=== PATIENT | male | born 2000 | race Caucasian/White ===

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

== ENCOUNTER 2022-06-16 18:20 | Emergency (ER) | payer OTHER, SELFPAY ==
[2022-06-16 18:34] VITALS: BP 121/62; PULSE 68; RESP 16; TEMP 36.8; O2SAT 100
--- NOTE | 2022-06-16 18:52 | ED.NAVMDI ---
HPI - Nausea/Vomiting/Diarrhea General Chief complaint: Dizziness Stated complaint: Vomitting, passed out Time Seen by Provider: 06/16/22 19:10 Source: patient Mode of arrival: ambulatory Limitations: no limitations History of Present Illness HPI Narrative: Ben is a 21-year-old male patient presenting to the clinic today with complaints of nausea, vomiting, and passing out. He reports that he was eating something approximately 1 hour prior to arrival and felt nauseous and spit it out and then he got some stomach pain and vomited and felt as though he passed out near the stool. He denies hitting his head. He reports that he feels like his heart is pounding out of his chest. The reports that they did a COVID test prior to arrival and it was negative. He felt sweaty and chilled. He denies feeling nauseated at this time Related Data Home Medications Medication Instructions Recorded Confirmed No Home Medications 06/16/22 06/16/22 Allergies Allergy/AdvReac Type Severity Reaction Status Date / Time bee pollen Allergy Mild Swelling Verified 06/16/22 19:16 Penicillins Allergy Unknown Rash Verified 06/16/22 19:16 Review of Systems Review of Systems: Pertinent positives per HPI. Patient denies any fever, chills, rash, headache, visual changes, dizziness, cough, runny nose, sore throat, shortness of breath, chest pain, palpitations, nausea, vomiting, diarrhea, constipation, abdominal pain, or any urinary issues. PMFSH Past Medical History Medical History Anxiety Surgical History Surgical History No pertinent past surgical history Social History Social History Smoking status: Never smoker Alcohol intake: never Substance use: never Gender identity (if verbalized by the patient): Male Comments At the time of my signature, I reviewed and agree with the nursing past medical, surgical, social, and family history. There is no relevant family history pertinent to the patient complaint. Exam Narrative: General: Well-developed, well nourished, in no apparent distress Head: Normocephalic, atraumatic Eyes: Pupils equally round and reactive to light bilaterally, EOM intact, sclera and conjunctive clear, no discharge, lids normal Ears: TMs intact and clear, ear canals clear, no drainage, grossly hearing normal. Nose: Nares patent, no discharge, no inflammation, no sinus tenderness. Mouth: Oropharynx without lesions or masses, good dentition, MMM. Neck: Supple, trachea midline, no enlargement of anterior or posterior cervical nodes, no thyroid masses or goiter palpable. Cardio: Regular rate and rhythm, s1 and s2 normal, no murmur appreciated. Resp: Clear to auscultation bilaterally anteriorly and posteriorly, no rhonchi, rales, wheezing or rubs Abdomen: Soft, pliable, nontender to palpation, bowel sounds present all 4 quadrants, no organomegaly, no CVAT tenderness Course Course Emergency Course: Portions of this record may have been created with voice recognition software. Level of Care: Express Care Visit Vital Signs Vital signs: Vital Signs Temperature 36.8 C 06/16/22 18:34 Pulse Rate 68 06/16/22 18:34 Respiratory Rate 16 06/16/22 18:34 Blood Pressure 121/62 06/16/22 18:34 Pulse Oximetry 100 06/16/22 18:34 Oxygen Delivery Room Air 06/16/22 18:34 Temperature 36.8 C 06/16/22 18:34 Pulse Rate 80 06/16/22 19:06 Respiratory Rate 16 06/16/22 18:34 Blood Pressure 120/59 L 06/16/22 19:06 Pulse Oximetry 100 06/16/22 18:34 Oxygen Delivery Room Air 06/16/22 18:34 Vital signs reviewed MDM - Nausea/Vomiting/Diarrhea MDM Narrative Medical decision making narrative: At the time of visit patient is resting comfortably on the exam table. Neuro-checks were within normal limits. Blood
[2022-06-16 19:05] VITALS: BP 122/60; BP 123/60; PULSE 55; PULSE 58
[2022-06-16 19:06] VITALS: BP 120/59; PULSE 80
[2022-06-16 19:16] LABS: Glucose Point of Care 87 mg/dl (65-105)
--- NOTE | 2022-06-16 19:22 | ECG_ITS ---
Measurements Intervals [place] Rate: 48 P: 26 ME: 105 QRS: 62 QRSD: 108 T: 53 QT: 423 QTc: 382 Interpretive Statements SINUS BRADYCARDIA WITH SHORT ME INTERVAL POSSIBLE RIGHT VENTRICULAR CONDUCTION DELAY [RSR (QR) IN V1/V2] PEAKED T-WAVE CONSIDER HYPERKALEMIA COMPARED TO ECG 05/15/2020 21:41:37 HEART RATE IS REDUCED T-WAVE ABNORMALITY NOTED Electronically Signed On 06-17-2022 12:43:10 CDT by Alex Butts M.D.
== END 2022-06-16 19:40 | disposition home or self-care (01) ==
PROVIDERS: Emergency Provider Nurse Practitioner Family; PCP Pediatrics
DX: R55 Syncope and collapse (principal)
CPT/HCPCS: 81003; 82948; 93005; 99213; G0463

== ENCOUNTER 2023-02-17 10:15 | Emergency (ER) | payer OTHER, SELFPAY ==
[2023-02-17 10:23] VITALS: BP 127/82; PULSE 68; RESP 16; TEMP 36.8; O2SAT 99
--- NOTE | 2023-02-17 10:24 | ED.GENADULT ---
HPI - General Adult General Chief complaint: Abdominal Pain Stated complaint: abd pain Time Seen by Provider: 02/17/23 10:30 Source: patient and RN notes reviewed Mode of arrival: ambulatory Limitations: no limitations History of Present Illness HPI narrative: 22-year-old male presented for complaint of nausea and diarrhea for 2 days. States he cannot tolerate food without it ?going through him. ? Endorses feeling weakness and abdominal cramping. He denies hematochezia, melena, or vomiting, fevers or chills. He has not taken anything for symptoms. He endorses sister is sick with similar symptoms. Related Data Allergies Allergy/AdvReac Type Severity Reaction Status Date / Time bee pollen Allergy Mild Swelling Verified 02/17/23 10:21 Penicillins Allergy Unknown Rash Verified 02/17/23 10:21 Review of Systems Review of Systems: CONSTITUTIONAL: Denies body aches, fever, chills ENT: Denies rhinorrhea, congestion CARDIOVASCULAR: Denies chest pain, palpitations, or edema. RESPIRATORY: Denies cough or dyspnea. GASTROINTESTINAL: Endorses abdominal cramping, nausea, diarrhea. Denies hematochezia, melena, hematemesis GENITOURINARY: Denies dysuria, hematuria, or CVA tenderness. SKIN: Denies rash, itching, or wounds. MUSCULOSKELETAL: Denies back pain, joint pain, or myalgia. NEUROLOGIC: Denies headache, numbness, tingling, or weakness. All systems reviewed & are unremarkable except as noted in HPI and below PMFSH Past Medical History Medical History Anxiety Surgical History Surgical History No pertinent past surgical history Social History Social History Smoking status: Never smoker Alcohol intake: never Substance use: never Gender identity (if verbalized by the patient): Male Comments At time of signature, I have reviewed and agree with nursing past medical, surgical, social and family history unless otherwise noted. Please see nursing chart for further information. There is no relevant family history pertinent to the presenting complaint Exam Narrative: GENERAL: Well-appearing, and in no acute distress. EYES: EOMI. Conjunctivae normal. ENT: Mucous membranes pink and moist. CHEST: No respiratory distress. Clear to auscultation. HEART: Regular rate and rhythm. No murmur appreciated. Normal peripheral pulses. ABDOMEN: abd soft, nondistended, hyper-active bowel sounds. nontender abdomen, No guarding, rebound tenderness, asymmetry EXTREMITIES: Normal range of motion. No edema. SKIN: Warm, dry, no rash. Capillary refill normal. Normal skin turgor. NEURO: No focal deficits. Alert and oriented x3. Course Course Emergency Course: Patient is aware of diagnosis, understands and agrees to treatment plan. Anticipatory guidance given. Patient agrees to follow-up as directed and is aware of reasons to seek care at the emergency department. Portions of this record may have been created with voice recognition software Level of Care: Express Care Visit Vital Signs Vital signs: Vital Signs Temperature 98.2 F 02/17/23 10:23 Pulse Rate 68 02/17/23 10:23 Respiratory Rate 16 02/17/23 10:23 Blood Pressure 127/82 02/17/23 10:23 Pulse Oximetry 99 02/17/23 10:23 Oxygen Delivery Room Air 02/17/23 10:23 Temperature 98.2 F 02/17/23 10:23 Pulse Rate 68 02/17/23 10:23 Respiratory Rate 16 02/17/23 10:23 Blood Pressure 127/82 02/17/23 10:23 Pulse Oximetry 99 02/17/23 10:23 Oxygen Delivery Room Air 02/17/23 10:23 Medical Decision Making MDM Narrative Medical decision making narrative: Pt is in stable condition, tolerating PO. BS 137. Symptoms not typical for emergent causes of abdominal pain. Patient is well appearing. Discussed physical exam findings. Advised supportive measures and signs/sympt
[2023-02-17 10:43] LABS: Glucose Point of Care 137 mg/dl (65-105)
== END 2023-02-17 10:42 | disposition home or self-care (01) ==
PROVIDERS: Emergency Provider Nurse Practitioner Family
DX: R19.7 Diarrhea, unspecified (principal)
CPT/HCPCS: 82948; 99213; G0463

== ENCOUNTER 2023-08-26 17:12 | Emergency (ER) | payer SELFPAY ==
[2023-08-26 17:19] VITALS: BP 92/49; PULSE 58; RESP 16; TEMP 36.6; O2SAT 100
--- NOTE | 2023-08-26 18:00 | PC.NURSE ---
moved to rm 1 for stretcher.
--- NOTE | 2023-08-26 18:04 | ED.WOUNDLAC ---
HPI - Wound/Laceration General Chief Complaint: Extremity Injury, Upper Stated Complaint: left finger injury Time Seen by Provider: 08/26/23 17:30 Source: patient Mode of arrival: ambulatory Limitations: no limitations History of Present Illness HPI narrative: Ben is a 22-year-old male patient presenting to the clinic today with complaints of a left finger injury/laceration. He rid reports that he was using a knife and cut the left lateral index finger. Bleeding is controlled. Tetanus is up-to-date Related Data Home Medications Medication Instructions Recorded Confirmed No Home Medications 08/26/23 08/26/23 Allergies Allergy/AdvReac Type Severity Reaction Status Date / Time bee pollen Allergy Mild Swelling Verified 02/17/23 10:21 Penicillins Allergy Unknown Rash Verified 02/17/23 10:21 Review of Systems Review of Systems: Pertinent positives per HPI. Patient denies any fever, chills, rash, headache, visual changes, dizziness, cough, shortness of breath, chest pain, palpitations, nausea, vomiting, diarrhea, constipation, abdominal pain, or any urinary issues. PMFSH Past Medical History Medical History Anxiety Surgical History Surgical History No pertinent past surgical history Social History Social History Smoking status: Never smoker Alcohol intake: never Substance use: never Gender identity (if verbalized by the patient): Male Comments At the time of my signature, I reviewed and agree with the nursing past medical, surgical, social, and family history. There is no relevant family history pertinent to the patient complaint. Exam Narrative: General: Well-developed, well nourished, in no apparent distress Head: Normocephalic, atraumatic. Cardio: Regular rate and rhythm, s1 and s2 normal, no murmur appreciated. Resp: Clear to auscultation bilaterally, no rhonchi, rales, wheezing or rubs. Integumentary: [place], warm, and dry, intact without lesion, 1 cm horizontal laceration to the lateral distal left phalanx Course Course Emergency Course: Portions of this record may have been created with voice recognition software. Level of Care: Express Care Visit Vital Signs Vital signs: Vital Signs Temperature 36.6 C 08/26/23 17:19 Pulse Rate 58 L 08/26/23 17:19 Respiratory Rate 16 08/26/23 17:19 Blood Pressure 92/49 L 08/26/23 17:19 Pulse Oximetry 100 08/26/23 17:19 Oxygen Delivery Room Air 08/26/23 17:19 Temperature 36.6 C 08/26/23 17:19 Pulse Rate 58 L 08/26/23 17:19 Respiratory Rate 16 08/26/23 17:19 Blood Pressure 92/49 L 08/26/23 17:19 Pulse Oximetry 100 08/26/23 17:19 Oxygen Delivery Room Air 08/26/23 17:19 Vital signs reviewed Procedures Laceration Laceration 1: Date: 08/26/23 Site: hand (finger) Side (If applicable): left (index) Size (cm): 1 Description: linear Depth: simple, single layer Local Anesthetic: lidocaine 1% Amount of anesthesia used (mL): 1 Pre-repair: wound explored and irrigated ====== Skin Level ====== Skin layer closed with: nylon Size (cm): 4-0 Number of sutures: 2 Technique: simple, interrupted ====== Subcutaneous Layer ====== ====== Muscle Layer ====== ====== Tendon Layer ====== Dressing: Verbal consent obtained for laceration repair. Risk and benefits explained and patient voiced understanding. Area was cleansed with antiseptic wound wash and a 25 gauge needle was then used to instill (1) ml of 1% lidocaine without epi into the wound edges. Area was prepped and draped using sterile technique. A 4-0 suture on a p needle was used to place (2) interrupted sutures bringing the wound edges together- well approximated. Patient t
--- NOTE | 2023-08-26 18:12 | PC.NURSE ---
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
== END 2023-08-26 18:23 | disposition home or self-care (01) ==
PROVIDERS: Emergency Provider Nurse Practitioner Family; PCP Physician Assistant
DX: S61.211A Laceration without foreign body of left index finger without damage to nail, initial encounter (principal); W26.0XXA Contact with knife, initial encounter
CPT/HCPCS: 12001; 99212; G0463

== ENCOUNTER 2024-03-07 15:45 | Emergency (ER) | payer SELFPAY ==
--- NOTE | 2024-03-07 15:48 | ED.URI ---
HPI - URI/Sore Throat General Chief Complaint: Upper Respiratory Infection Stated Complaint: Sore Throat,Headache,Stomach Pain, Earache, Fever Time Seen by Provider: 03/07/24 15:48 Source: patient Mode of arrival: ambulatory Limitations: no limitations History of Present Illness HPI Narrative: Ben is a 23 year old male patient presenting to the clinic today with c/o sore throat, headache, stomach discomfort, ear pain, and fever. He states he has been having symptoms x 1 week. Highest fever 101F. States he took 2 ibuprofen and this helped his symptoms but he is against taking medications. His symptoms have improved and he needed to come in today to make sure he was safe to go back to work. Patient stated, if you prescribe me any medicine, I won't take it. MD elicited complaint: sore throat and nasal congestion Related Data Home Medications Medication Instructions Recorded Confirmed No Home Medications 08/26/23 03/07/24 Allergies Allergy/AdvReac Type Severity Reaction Status Date / Time bee pollen Allergy Mild Swelling Verified 03/07/24 15:53 Penicillins Allergy Unknown Rash Verified 03/07/24 15:53 Review of Systems Review of Systems: Pertinent positives per HPI. Patient denies any rash, visual changes, dizziness, shortness of breath, chest pain, palpitations, diarrhea, constipation, or any urinary issues. PMFSH Past Medical History Medical History Anxiety Surgical History Surgical History No pertinent past surgical history Social History Social History Smoking status: Never smoker Alcohol intake: never Substance use: never Gender identity (if verbalized by the patient): Male Comments At the time of my signature, I reviewed and agree with the nursing past medical, surgical, social, and family history. There is no relevant family history pertinent to the patient complaint. Exam Narrative: General: Well-developed, well nourished, in no apparent distress Head: Normocephalic, atraumatic Eyes: Pupils equally round and reactive to light bilaterally, EOM intact, sclera and conjunctive clear, no discharge, lids normal Ears: TMs intact and clear, ear canals clear, no drainage, grossly hearing normal. Nose: Nares patent, no discharge, no inflammation, no sinus tenderness. Mouth: Oral pharynx red without lesions or masses, good dentition, MMM. Neck: Supple, trachea midline, no enlargement of anterior or posterior cervical nodes, no thyroid masses or goiter palpable. Cardio: Regular rate and rhythm, s1 and s2 normal, no murmur appreciated. Resp: Clear to auscultation bilaterally, no rhonchi, rales, wheezing or rubs Course Course Emergency Course: Portions of this record may have been created with voice recognition software. Level of Care: Express Care Visit Vital Signs Vital signs: Vital Signs Temperature 37.2 C 03/07/24 15:54 Pulse Rate 93 03/07/24 15:54 Respiratory Rate 16 03/07/24 15:54 Blood Pressure 117/66 03/07/24 15:54 Pulse Oximetry 100 03/07/24 15:54 Oxygen Delivery Room Air 03/07/24 15:54 Temperature 37.2 C 03/07/24 15:54 Pulse Rate 93 03/07/24 15:54 Respiratory Rate 16 03/07/24 15:54 Blood Pressure 117/66 03/07/24 15:54 Pulse Oximetry 100 03/07/24 15:54 Oxygen Delivery Room Air 03/07/24 15:54 Vital signs reviewed MDM - URI/Sore Throat MDM Narrative Medical decision making narrative: At the time of visit patient is resting comfortably on the exam table. Patient appears to be nontoxic. Labs: Strep test was obtained and and negative in the clinic today. Plan: I suspect patient has viral pharyngitis. Supportive measures were discussed with the patient and they voiced understanding discharge instructions and agrees to treatment plan. Return p
[2024-03-07 15:54] VITALS: BP 117/66; PULSE 93; RESP 16; TEMP 37.2; O2SAT 100
== END 2024-03-07 16:25 | disposition home or self-care (01) ==
PROVIDERS: Emergency Provider Nurse Practitioner Family; PCP Physician Assistant
DX: J02.9 Acute pharyngitis, unspecified (principal); B34.9 Viral infection, unspecified
CPT/HCPCS: 87880; 99212; G0463

== ENCOUNTER 2024-06-16 09:48 | Emergency (ER) | payer SELFPAY ==
[2024-06-16 10:01] VITALS: BP 122/68; PULSE 66; RESP 16; TEMP 37.2; O2SAT 99
--- NOTE | 2024-06-16 10:28 | ECG_ITS ---
Test Date: 2024-06-16 10:49:37 Measurements Intervals Arjay Rate: 48 P: 45 NJ: 126 QRS: 58 QRSD: 102 T: 60 QT: 414 QTc: 373 Interpretive Statements SINUS BRADYCARDIA PEAKED T-WAVES CONSIDER HYPERKALEMIA ABNORMAL ECG No previous ECG available for comparison Electronically Signed On 06-18-2024 07:06:15 CDT by Alex Butts M.D.
[2024-06-16 10:45] VITALS: BP 120/74; PULSE 58
[2024-06-16 10:47] VITALS: BP 123/78; PULSE 57
[2024-06-16 10:48] VITALS: PULSE 50
[2024-06-16 10:49] VITALS: BP 122/70; PULSE 72
[2024-06-16 11:07] VITALS: BP 122/70; PULSE 60; RESP 18; O2SAT 100
--- NOTE | 2024-06-16 11:33 | ED.DIZZY ---
HPI - Dizziness General Chief Complaint: Dizziness Stated Complaint: lightheaded,dizzy,may have passed out Source: patient Mode of arrival: ambulatory Limitations: no limitations History of Present Illness HPI Narrative: Patient presents for evaluation after having a syncopal event at work this morning. 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 He indicates around 6:00 a.m. this morning he developed hot flashes, chills, dizziness, nausea and began seeing black spots. He sat down on the ground. A coworker went to get help and patient then had a positive LOC. He did not sustain any injuries. At the present time he feels weak. He indicates he has had similar episodes in the past. He has experienced left sided headaches on and off for awhile . He also has periods of chest pain. He states his chest pain and both the chest pain and headache feel like someone ripping through muscle . He denies any SOB. He does have periods of time where he feels like his heart is racing. He indicates they checked his BS at work and it was in the 70's. Related Data Home Medications Medication Instructions Recorded Confirmed No Home Medications 08/26/23 03/07/24 Allergies Allergy/AdvReac Type Severity Reaction Status Date / Time bee pollen Allergy Mild Swelling Verified 03/07/24 15:53 Penicillins Allergy Unknown Rash Verified 03/07/24 15:53 Review of Systems Review of Systems: CONSTITUTIONAL: Reports hot flashes and chills earlier, now resolved. EYES: Denies visual changes, redness, or discharge. ENT: Denies rhinorrhea, congestion, sore throat, or otalgia. CARDIOVASCULAR:Reports periods of chest pain and palpitations RESPIRATORY: Denies cough or dyspnea. GASTROINTESTINAL: Denies abdominal pain, nausea, vomiting, or diarrhea. GENITOURINARY: Denies dysuria or hematuria. SKIN: Denies rash or itching. MUSCULOSKELETAL: Denies back pain, joint pain, or myalgia. NEUROLOGIC: Reports episodes of headache. Reports weakness. Reports dizziness earlier, now resolved PSYCHIATRIC: Denies anxiety or depression. [facility] Past Medical History Medical History Anxiety Surgical History Surgical History No pertinent past surgical history Family History Family History Mother Family history non-contributory Social History Social History Smoking status: Never smoker Alcohol intake: never Substance use: never Gender identity (if verbalized by the patient): Male Sexual Orientation (if Verbalized by the Patient): Straight or Heterosexual Spiritual care concerns: No Exam Narrative: GENERAL: Well-appearing, well-nourished, and in no acute distress. HEAD: Normocephalic, atraumatic. EYES: PERRLA and EOMI. ENT: Nares clear, no rhinorrhea or epistaxis. Mucous membranes moist. Oropharynx without tonsillar hypertrophy exudate or other lesions. Bilateral TMs pearly peralta nonbulging NECK: Supple. No adenopathy or masses. No carotid bruits or JVD CHEST: Clear to auscultation. No respiratory distress. No wheezes rales or rhonchi HEART: Regular rate and rhythm. No murmur heard. Normal peripheral pulses. ABDOMEN: Soft, nontender, nondistended, normal active bowel sounds. EXTREMITIES: Normal range of motion. No edema. SKIN: Warm, dry, no rash. NEURO: No focal deficits. Alert and oriented x3. Normal [id number] exam. Able to perform rapid alternating movements without difficulty PSYCH: Normal mood and affect. Course Course Emergency Course: This is a 23-year-old male who presented for evaluation after having a syncopal episode at work earlier today. He is neurologically intact on exam. EKG here showed sinus bradycardia. Heart rate elevated from 50's to 70's when moving from laying to sitting an
== END 2024-06-16 11:07 | disposition short-term general hospital (02) ==
LOC: EXPCOLL 09:55
PROVIDERS: Emergency Provider Nurse Practitioner
DX: R55 Syncope and collapse (principal)
CPT/HCPCS: 93005; 99213; G0463

== ENCOUNTER 2024-06-19 16:46 | Emergency (ER) | payer SELFPAY ==
--- NOTE | ~2024-06-19 | XR_ITS ---
EXAMINATION: XR chest 2V DATE: 06/19/2024 17:30 INDICATION: Decreased breath sounds. TECHNIQUE: Frontal and lateral views of the chest were obtained. COMPARISON: None. FINDINGS: There is no pneumonia, pleural effusion, or pneumothorax. The heart size is normal. IMPRESSION: 1. No acute cardiopulmonary disease. Reviewed, dictated and finalized at location A.
[2024-06-19 17:00] VITALS: BP 106/66; PULSE 90; RESP 14; TEMP 37.2; O2SAT 99
--- NOTE | 2024-06-19 17:01 | ED.URI ---
HPI - URI/Sore Throat General Chief Complaint: Upper Respiratory Infection Stated Complaint: throat hurts,runny nose,chest pain,needs COVID negra Time Seen by Provider: 06/19/24 16:50 Source: patient Mode of arrival: ambulatory Limitations: no limitations History of Present Illness HPI Narrative: Ben is a 23-year-old male patient presenting to the clinic today with complaints of sore throat, runny nose, cough, chest discomfort, shortness breath, and generalized fatigue. He is requesting a COVID test as he is had direct exposure. States he has had a slightly productive cough with clear/yellow phlegm. Has not taken any medications for his symptoms. MD elicited complaint: sore throat and nasal congestion Related Data Allergies Allergy/AdvReac Type Severity Reaction Status Date / Time bee pollen Allergy Intermediate Swelling Verified 06/19/24 16:49 Penicillins Allergy Intermediate Rash Verified 06/19/24 16:49 Review of Systems Review of Systems: Pertinent positives per HPI. Patient denies any fever, chills, rash, headache, visual changes, dizziness, chest pain, palpitations, nausea, vomiting, diarrhea, constipation, abdominal pain, or any urinary issues. PMFSH Past Medical History Medical History Anxiety Surgical History Surgical History No pertinent past surgical history Family History Family History Mother Family history non-contributory Social History Social History Smoking status: Never smoker Alcohol intake: never Substance use: never Gender identity (if verbalized by the patient): Male Sexual Orientation (if Verbalized by the Patient): Straight or Heterosexual Spiritual care concerns: No Comments At the time of my signature, I reviewed and agree with the nursing past medical, surgical, social, and family history. There is no relevant family history pertinent to the patient complaint. Exam Narrative: General: Well-developed, well nourished, in no apparent distress Head: Normocephalic, atraumatic Eyes: Pupils equally round and reactive to light bilaterally, EOM intact, sclera and conjunctive clear, no discharge, lids normal Ears: TMs intact and congested, ear canals clear, no drainage, grossly hearing normal. Nose: Nares patent, clear nasal discharge, no inflammation, no sinus tenderness. Mouth: Oral pharynx red without lesions or masses, good dentition, MMM. Neck: Supple, trachea midline, no enlargement of anterior or posterior cervical nodes, no thyroid masses or goiter palpable. Cardio: Regular rate and rhythm, s1 and s2 normal, no murmur appreciated. Resp: Clear to auscultation bilaterally, no rhonchi, rales, wheezing or rubs Course Course Emergency Course: Portions of this record may have been created with voice recognition software. Level of Care: Express Care Visit Vital Signs Vital signs: Vital Signs Temperature 37.2 C 06/19/24 17:00 Pulse Rate 90 06/19/24 17:00 Respiratory Rate 14 06/19/24 17:00 Blood Pressure 106/66 06/19/24 17:00 Pulse Oximetry 99 06/19/24 17:00 Temperature 37.2 C 06/19/24 17:00 Pulse Rate 90 06/19/24 17:00 Respiratory Rate 14 06/19/24 17:00 Blood Pressure 106/66 06/19/24 17:00 Pulse Oximetry 99 06/19/24 17:00 Vital signs reviewed MDM - URI/Sore Throat MDM Narrative Medical decision making narrative: At the time of visit patient is resting comfortably on the exam table. Patient appears to be nontoxic. Labs: COVID testing was negative in the clinic today. Diagnostics: Chest x-rays negative for any acute cardiopulmonary process. Plan: I suspect patient has URI/pharyngitis/viral syndrome. Will send in albuterol inhaler for cough shortness breath or wheeze. Suppor
== END 2024-06-19 18:11 | disposition home or self-care (01) ==
PROVIDERS: Emergency Provider Nurse Practitioner Family
DX: B34.9 Viral infection, unspecified (principal); J06.9 Acute upper respiratory infection, unspecified; J02.9 Acute pharyngitis, unspecified; Z20.822 Contact with and (suspected) exposure to COVID-19
CPT/HCPCS: 71046; 87426; 99213; G0463